=== PATIENT | female | born 1975 | race African-American/Black ===

== ENCOUNTER 2017-09-18 15:01 | Emergency (ER) | payer SELFPAY ==
[2017-09-18 15:06] VITALS: BP 138/78
[2017-09-18] MEDS ORDERED: KETOROLAC TROMETHAMINE 60 MG/2 ML SDV IM ONE (16:31)
[2017-09-18] MEDS ORDERED: HYDROCODONE/ACETAMINOPHEN 5-325 MG TABLET PO ONE (16:31)
--- NOTE | 2017-09-18 17:00 | RADIOLOGY REPORT (SQ) ---
EXAM DESCRIPTION: HIP RIGHT AP/LATERAL COMPLETED DATE/TIME: 09/18/2017 4:48 pm REASON FOR STUDY: r hippain COMPARISON: None. NUMBER OF VIEWS: Two views. TECHNIQUE: AP pelvis and additional frog-leg view of the right hip. LIMITATIONS: None. FINDINGS: MINERALIZATION: Normal. RIGHT HIP: No fracture or dislocation. Minimal spurring off of the right femoral head medially. No significant joint space narrowing. No erosion. LEFT HIP: No fracture or dislocation. No worrisome bone lesions. PUBIS AND ISCHIUM: No fracture. PELVIS: No fracture. SACRUM: No fracture or dislocation. No worrisome bone lesions. LOWER LUMBAR SPINE: No fracture or dislocation. No worrisome bone lesions. No significant disc disea se. SOFT TISSUES: No findings. OTHER: No other significant finding. IMPRESSION: 1 NEGATIVE STUDY OF THE RIGHT HIP. TECHNICAL DOCUMENTATION: JOB ID: [id number] [employer]- All Rights Reserved Reading location - IP/workstation name: [email or web address]
--- NOTE | 2017-09-18 17:15 | ER Document Report ---
HPI - HPI Onset: Other - 2-3 months ago Onset/Duration: Sudden, Persistent Quality of pain: Sharp Severity: Moderate Pain Level: 3 Exacerbated by: Standing, Walking Similar symptoms previously: No Notes: 36-year-old -[place] female with past medical history of migraines presents with 2-3 month history of right hip pain. Slipped at work 3 months ago and when she caught herself she felt a "pop" in her R hip. Pain is constant and worsens with moving from sitting to standing and with ambulation, has been using a cane for assistance. Pain radiates to the R groin and R lower back. Taken BC powder daily for symptoms. Denies fever, chills, CP, SOB, bowel/ bladder incontinence or retention, saddle anesthesia. - CONSTITUTIONAL Constitutional: DENIES: Fever, Chills - EENT EENT: DENIES: Sore Throat, Ear Pain, Eye problems - NEURO Neurology: DENIES: Headache, Weakness, Vision blurred - CARDIOVASCULAR Cardiovascular: DENIES: Chest pain - RESPIRATORY Respiratory: DENIES: Trouble Breathing, Coughing - GASTROINTESTINAL Gastrointestinal: DENIES: Abdominal Pain, Black / Bloody Stools - URINARY Urinary: DENIES: Dysuria, Urgency, Frequency - REPRODUCTIVE Reproductive: DENIES: : - MUSCULOSKELETAL Musculoskeletal: DENIES: Extremity pain Past Medical History - General Information source: Patient Last Menstrual Period: 09/18/17 - Social History Smoking Status: Never Smoker Cigarette use (# per day): No Chew tobacco use (# tins/day): No Frequency of alcohol use: None Drug Abuse: None Family History: None, Reviewed & Not Pertinent Patient has suicidal ideation: No Patient has homicidal ideation: No Neurological Medical History: Reports: Hx Migraine Renal/ Medical History: Denies: Hx Peritoneal Dialysis Surgical Hx: Negative - Immunizations Hx Diphtheria, Pertussis, Tetanus Vaccination: Yes Vertical Provider Document - CONSTITUTIONAL Agree With Documented VS: Yes General Appearance: WD/WN, No Apparent Distress - INFECTION CONTROL TRAVEL OUTSIDE OF THE [place] IN LAST 30 DAYS: No - HEENT HEENT: Atraumatic, Normocephalic - RESPIRATORY Respiratory: Breath Sounds Normal, No Respiratory Distress - CARDIOVASCULAR Cardiovascular: Regular Rate, Regular Rhythm, No Murmur Pulses: Normal: Posterior tibial, Dorsalis pedis - GI/ABDOMEN Gastrointestinal: Abdomen Soft, Abdomen Non-Tender, Normal Bowel Sounds - BACK Back: Normal Inspection - MUSCULOSKELETAL/EXTREMETIES Musculoskeletal/Extremeties: Non-Tender, No Edema. negative: Eccymosis - NEURO Level of Consciousness: Awake, Alert, Appropriate Motor/Sensory: No Sensory Deficit - DERM Integumentary: Warm, Dry, No Rash Notes: No erythema or echymosis Course - Vital Signs Vital signs: Temp Pulse Resp BP Pulse Ox 101 H 18 138/78 H 100 09/18/17 15:06 09/18/17 15:06 09/18/17 15:06 09/18/17 15:06 - Diagnostic Test Radiology reviewed: Reports reviewed Radiology results interpreted by me: 09/18/17 18:16 R hip x-ray negative for acute fracture. Discharge - Discharge Clinical Impression: Right hip pain Low back pain Qualifiers: Chronicity: unspecified Back pain laterality: right Sciatica presence: without sciatica Qualified Code(s): M54.5 - Low back pain Condition: Stable Disposition: HOME, SELF-CARE Instructions: Anti-Inflammatory Medication ([facility]), Muscle Relaxers ([facility]), Muscle Strain ([facility]), Sprain ([facility]) Additional Instructions: return as needed for any new or worsening symptoms follow up with orthopedics for further evaluation Prescriptions: Cyclobenzaprine HCl [Flexeril 10 Mg Tablet] 10 mg PO TID #15 tablet Naproxen [Naprosyn 250 Nmg Tablet] 1 tab PO BID #14 tablet Forms: Return to Work Referrals: [facility] [Provider Group] - Follow up tomorrow
== END 2017-09-18 17:19 | disposition home or self-care (01) ==
LOC: ER 15:01
DX: M25.551 Pain in right hip (principal); M54.5 Low back pain
CPT/HCPCS: 99283; 96372; 73502; J1885

== ENCOUNTER 2018-02-08 10:01 | Emergency (ER) | payer SELFPAY ==
[2018-02-08] MEDS ORDERED: KETOROLAC TROMETHAMINE INJ/PF 30 MG/1 ML SDV IV ONE (10:30)
[2018-02-08] MEDS ORDERED: DIPHENHYDRAMINE HCL 50 MG/ML VIAL IV ONE (10:30)
[2018-02-08] MEDS ORDERED: METOCLOPRAMIDE HCL INJ/PF 10 MG/2 ML SDV IV ONE (10:30)
[2018-02-08] MEDS ORDERED: DIPHENHYDRAMINE HCL 50 MG CAPSULE PO ONE (11:10)
[2018-02-08] MEDS ORDERED: KETOROLAC TROMETHAMINE 60 MG/2 ML SDV IM ONE (11:11)
[2018-02-08] MEDS ORDERED: METOCLOPRAMIDE HCL INJ/PF 10 MG/2 ML SDV IM ONE (11:11)
--- NOTE | 2018-02-08 11:13 | ER Document Report ---
ED Medical Screen (RME) - General Chief Complaint: Headache Stated Complaint: HEADACHE/DIZZY Time Seen by Provider: 02/08/18 10:19 TRAVEL OUTSIDE OF THE [place] IN LAST 30 DAYS: No - Related Data Allergies/Adverse Reactions: No Known Allergies Allergy (Verified 02/08/18 10:02) Past Medical History - Social History Frequency of alcohol use: None Drug Abuse: None Neurological Medical History: Reports: Hx Migraine Renal/ Medical History: Denies: Hx Peritoneal Dialysis - Immunizations Hx Diphtheria, Pertussis, Tetanus Vaccination: Yes Physical Exam - Vital signs Vitals: Temp Pulse Resp BP Pulse Ox 98.1 F 111 H 16 133/67 H 98 02/08/18 10:04 02/08/18 10:04 02/08/18 10:04 02/08/18 10:04 02/08/18 10:04 Course - Re-evaluation Re-evalutation: 02/08/18 11:12 42-year-old with recurrent headaches in the past which has been evaluated through an neurology office in the past undergoing imaging of her brain the presents for evaluation of a recurrent headache. Is very similar to previous episodes of headaches. I have seen and performed a rapid medical screening examination on this patient, workup has been initiated however there will require further evaluation reassessment and disposition determination from a secondary provider. - Vital Signs Vital signs: Temp Pulse Resp BP Pulse Ox 98.1 F 111 H 16 133/67 H 98 02/08/18 10:04 02/08/18 10:04 02/08/18 10:04 02/08/18 10:04 02/08/18 10:04
--- NOTE | 2018-02-08 12:42 | ER Document Report ---
ED General - General Chief Complaint: Headache Stated Complaint: HEADACHE/DIZZY Time Seen by Provider: 02/08/18 10:19 Notes: Patient is a 42-year-old female with history of chronic migraines that presents to the emergency department for chief complaint of migraine headache. Patient states that this migraine has been going on over the past 4 days, she usually takes BC powder and it usually helps, but this 1 has been lasting longer, although it is not the worst when she is had in the past. She states that she has had workups for headaches in the past including MRIs, without acute findings. She states she has had some aura with this migraine, which she has had in the past, and had a lightheadedness, with mild nausea but no vomiting. She denies having any numbness, tingling or weakness in any extremity. Denies any headaches, ear pain, fevers, chills, night sweats or neck stiffness. She does not believe that she is as she is currently on her menstrual cycle. Past Medical History: Migraine headaches Past Surgical History: Denies major surgical history Social History: Admits to smoking cigarettes, denies alcohol or drug use. Family History: Reviewed and noncontributory for presenting illness Allergies: Reviewed, see documented allergy list. REVIEW OF SYSTEMS: Other than noted above, the 12 point review of systems was reviewed with the patient and were negative, all pertinent findings are included in the HPI. PHYSICAL EXAMINATION: Vital signs reviewed, nursing noted reviewed. GENERAL: Well-appearing, well-nourished and in no acute distress, but appears mildly uncomfortable with the lights off in the room HEAD: Atraumatic, normocephalic. EYES: Eyes appear normal, extraocular movements intact, sclera anicteric, conjunctiva are normal. ENT: nares patent, oropharynx clear without exudates. Moist mucous membranes. NECK: Normal range of motion, supple without lymphadenopathy LUNGS: Breath sounds clear to auscultation bilaterally and equal. No wheezes rales or rhonchi. HEART: Regular rate and rhythm without murmurs ABDOMEN: Soft, nontender, normoactive bowel sounds. No rebound, guarding, or rigidity. No masses appreciated. EXTREMITIES: Nontender, good range of motion, no pitting or edema. NEUROLOGICAL: No focal neurological deficits. Moves all extremities spontaneously Motor and sensory grossly intact on exam. PSYCH: Normal mood, normal affect. SKIN: Warm, Dry, normal turgor, no rashes or lesions noted on exposed skin TRAVEL OUTSIDE OF THE [place] IN LAST 30 DAYS: No - Related Data Allergies/Adverse Reactions: No Known Allergies Allergy (Verified 02/08/18 10:02) Past Medical History - Social History Smoking Status: Never Smoker Frequency of alcohol use: None Drug Abuse: None Family History: None, Reviewed & Not Pertinent Patient has suicidal ideation: No Patient has homicidal ideation: No Neurological Medical History: Reports: Hx Migraine Renal/ Medical History: Denies: Hx Peritoneal Dialysis - Immunizations Hx Diphtheria, Pertussis, Tetanus Vaccination: Yes Physical Exam - Vital signs Vitals: Temp Pulse Resp BP Pulse Ox 98.1 F 111 H 16 133/67 H 98 02/08/18 10:04 02/08/18 10:04 02/08/18 10:04 02/08/18 10:04 02/08/18 10:04 Course - Re-evaluation Re-evalutation: Presentation of a headache that appears to be most consistent with tension versus migrainous type headache. Headache was not maximal in onset, patient has no focal neurologic deficits, no nuchal rigidity, vital signs within normal limits, and patient is overall well in appearance. Based on clinical history and examination I do not suspect an acute subarachnoid hemorrhage, dural venous sinus thrombosis, acute meningitis, or intercranial mass. Given my low clinical suspicion for any acute life-threatening etiology, I do not feel advanced neuro imaging or laboratory testing is indicated at this time. Will proceed with headache cocktail and reassess. On reevaluation the patient was feeling much better, she was given Reglan, and Toradol, and dose with Fioricet, and was feeling much better, will give her a prescription for Fioricet to take for home, and advised her to follow-up with her primary care physician, patient was agreeable to plan of care and discharged home. - Vital Signs Vital signs: Temp Pulse Resp BP Pulse Ox 98 F 86 14 108/67 100 02/08/18 15:04 02/08/18 15:04 02/08/18 15:04 02/08/18 15:04 02/08/18 15:04 Discharge - Discharge Clinical Impression: Headache Qualifiers: Headache type: unspecified Headache chronicity pattern: acute headache Intractability: not intractable Qualified Code(s): R51 - Headache Condition: Stable Disposition: HOME, SELF-CARE Instructions: Headache ([facility]) Prescriptions: Butalb/Acetaminophen/Caffeine [Fioricet (50-325-40 mg) Tablet] 1 tab PO Q6H PRN #10 tab PRN Reason: headache Forms: Return to Work Referrals: ONDINA ROD MD [ACTIVE STAFF] - Follow up in 3-5 days (or your primary care. )
[2018-02-08] MEDS ORDERED: BUTALB/ACETAMINOPHEN/CAFFEINE 1 TAB EACH PO ONE (12:58)
[2018-02-08 15:05] VITALS: BP 108/67
== END 2018-02-08 15:04 | disposition home or self-care (01) ==
LOC: ER 10:01
DX: R51 Headache (principal); R42 Dizziness and giddiness; F17.210 Nicotine dependence, cigarettes, uncomplicated
CPT/HCPCS: 99283; 96372; J3490; J1885; J2765